=== PATIENT | female | born 1980 | race Caucasian/White ===

== ENCOUNTER → 2018-01-29 | Day surgery (SDC) | payer BC ==
[~2018-01-29] MED LIST: EFFEXOR XR150 MG PO; FENTANYL CITRATE/PF 100MCG/2 ML INJ ONE; LIDOCAINE HCL 2% LOCAL INJ 5 ML SDV VIAL INJ ONE; MIDAZOLAM HCL 2 MG/2 ML VIAL ONE; PROPOFOL IV EMULSION 10 MG/ML 20 ML VIAL ONE; ZANTAC PO
--- NOTE | 2018-01-29 09:56 | Operative Report ---
DATE OF PROCEDURE: January 29, 2018 PROCEDURE PERFORMED: Colonoscopy. PREOPERATIVE DIAGNOSIS: Recent history of diverticulitis, changes in bowel habits. POSTOPERATIVE DIAGNOSES 1. Colon polyps. 2. Diverticulosis. PREOPERATIVE MEDICATIONS: Consisted of MAC anesthesia. DESCRIPTION OF PROCEDURE: Using the [employer] video colonoscope, it was inserted in the patient's rectum and advanced without difficulty to the level of the cecum. The colon was studied from that level back down to the rectum. In the sigmoid colon, we found a 4 mm size benign polyp, which was removed with hot biopsy forceps. Scattered diverticula were seen without evidence of diverticulitis. Down in the rectum, another 4 mm size benign polyp was found and removed with the hot biopsy forceps. The colonoscope was withdrawn from the patient's rectum, and the procedure was ended. In conclusion, we have findings of 2 benign polyps, 1 in the sigmoid and 1 in the rectum, removed with hot biopsy forceps. A few scattered diverticula in the sigmoid colon, but no evidence of diverticulitis. The rest of the colon appears to be within normal limits. Job#: [id number]
== END | disposition home or self-care (01) ==
LOC: OR 06:53
PROVIDERS: ATTEND Internal Medicine Gastroenterology
DX: K57.32 Diverticulitis of large intestine without perforation or abscess without bleeding (principal); K63.5 Polyp of colon; K62.1 Rectal polyp; F41.9 Anxiety disorder, unspecified; Z88.5 Allergy status to narcotic agent; Z88.8 Allergy status to other drugs, medicaments and biological substances; Z80.0 Family history of malignant neoplasm of digestive organs
CPT/HCPCS: 45384; 81025; J2001; J2250